=== PATIENT | female | born 1995 | race Two or more races ===

== ENCOUNTER 2023-10-15 20:16 | Emergency (ER) | payer SELFPAY ==
[2023-10-15] MEDS ORDERED: Ondansetron ODT 4 MG TAB ONE (20:32)
[2023-10-15] MEDS ORDERED: Acetaminophen 500 MG TAB ONE (20:53)
[2023-10-15 21:17] LABS: SARS-CoV-2 NAA Rapid Test Not Detected (NotDetected)
== END 2023-10-15 22:48 | disposition home or self-care (01) ==
LOC: CSHERS 20:16
DX: J10.1 Influenza due to other identified influenza virus with other respiratory manifestations (principal)
CPT/HCPCS: 71045; Q0162